=== PATIENT | female | born 1980 | race Two or more races ===

== ENCOUNTER 2017-05-29 15:43 | Emergency (ER) | payer MEDICAID ==
[~2017-05-29] VITALS: Ht 152.4 cm; Wt 59.0 kg
[~2017-05-29 15:43] MED LIST: ALBUAER3 IN; LORA-622 PO
[2017-05-29 16:54] VITALS: BP 102/61
[2017-05-29] MEDS ORDERED: KETOROLAC TROMETH 60MG/2ML VIAL IM ONE (17:30)
== END 2017-05-29 17:47 | disposition home or self-care (01) ==
LOC: ER 15:46
DX: S83.91XA Sprain of unspecified site of right knee, initial encounter (principal); J45.909 Unspecified asthma, uncomplicated; F17.210 Nicotine dependence, cigarettes, uncomplicated; Z88.2 Allergy status to sulfonamides; V29.9XXA Motorcycle rider (driver) (passenger) injured in unspecified traffic accident, initial encounter; Y93.55 Activity, bike riding; Y99.8 Other external cause status; Y92.488 Other paved roadways as the place of occurrence of the external cause
CPT/HCPCS: 29505; 73562; 96372; 99284; J1885